=== PATIENT | male | born 1995 | race Caucasian/White ===

== ENCOUNTER 2021-01-31 12:36 | Emergency (ER) | payer MEDICAID, SELFPAY ==
[2021-01-31 12:42] VITALS: BP 139/101; PULSE 133; RESP 20; TEMP 36.7; O2SAT 98; BMI 32.1
--- NOTE | 2021-01-31 13:13 | EKG12_ITS ---
Test Reason : MENTAL STATUS CHANGE Blood Pressure : / mmHG Vent. Rate : 111 BPM Atrial Rate : 111 BPM P-R Int : 130 ms QRS Dur : 080 ms QT Int : 310 ms P-R-T Axes : 050 037 008 degrees QTc Int : 421 ms Sinus tachycardia Otherwise normal ECG Confirmed by SOLANGE MCCANN, LISSETTE ([id number]), tape editor SHAMAR COLLINS ([id number]) on 02/01/2021 9:22:30 AM Referred By: MARILU Confirmed By:LISSETTE NARVAEZ MD
--- NOTE | 2021-01-31 13:17 | NURSING ---
NO OLD EKGS
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
[2021-01-31 13:40] LABS: Absolute Lymphocyte Count 2.31 X10^3/uL (0.83-4.51); Absolute Neutrophil Count 5.2 X10^3/uL (2.0-7.7); Basophil# 0.03 X10^3/uL; Basophil% 0.4 % (0-1); Eosinophil# 0.05 X10^3/uL; Eosinophils% 0.6 % (0-5); Hematocrit 43.5 % (40-54); Hemoglobin 15.8 g/dL (13.0-16.5); Lymphocyte # 2.31 X10^3/ul (0.83-4.51); Lymphocyte % 28.4 % (19-41); Mean Corp Hgb Conc 36.3 g/dL (32-36); Mean Corpuscular Hgb 32.5 pg (27.0-32.0); Mean Corpuscular Volume 89.5 fL (80-94); Mean Platelet Vol. 9.9 fl (6.2-12.0); Monocyte# 0.54 X10^3/uL; Monocyte% 6.7 % (0-10); NRBC Flagged by Analyzer 0 % (0-5); Neutrophil # 5.16 X10^3/uL (2.7-7.7); Neutrophil % 63.5 % (47-70); POSITIVE COUNT YES; Platelet Count 269 K/mm3 (150-450); RBC Distribution Width CV 12.5 % (11.6-14.6); RBC Distribution Width SD 39.9 fl (35.1-43.9); Red Blood Count 4.86 M/mm3 (4.6-6.2); White Blood Count 8.1 K/mm3 (4.4-11.0)
[2021-01-31 13:44] LABS: Differential Indicated SCAN CRITERIA MET
[2021-01-31 14:05] LABS: Alcohol, Blood (Medical)-Serum < 3.0 mg/dL
[2021-01-31 14:06] LABS: Platelet Estimate ADEQUATE (ADEQ); Red Cell Morphology NORM C+C NORMAL (NORM C&C)
[2021-01-31 14:12] LABS: Anion Gap 6 (5-15); BUN 8 mg/dL (7-18); BUN/Creat Ratio 7.1 RATIO (10-20); CPK Total, Creatine Kinase 121 U/L (39-308); Calcium,Total 9.4 mg/dL (8.5-10.1); Chloride 107 mmol/L (98-107); Creatinine, Serum 1.13 mg/dL (0.70-1.30); EST Glomerular Filtration Rate 83 mL/min (>60); Est Glom Filt Rate - Afr Amer 100 mL/min (>60); Estimated Creatinine Clearance 98.19 ml/min; Glucose 126 mg/dL (74-106); Potassium 3.7 mmol/L (3.5-5.1); Sodium Level 139 mmol/L (136-145)
[2021-01-31 14:19] LABS: Amphetamine Urine VISTA POSITIVE (<1000 ng/mL); Barbiturate Urine VISTA NEGATIVE (< 200 ng/mL); Benzodiazepine Urine VISTA NEGATIVE (< 200 ng/mL); Cocaine Urine VISTA NEGATIVE (< 300 ng/mL); Ecstacy Urine VISTA NEGATIVE (< 500 ng/mL); Methadone Urine VISTA NEGATIVE (< 300 ng/mL); PCP Urine VISTA NEGATIVE (< 25 ng/mL); THC Urine VISTA POSITIVE (< 50 ng/mL); Vista UDS pH Range 5
[2021-01-31 15:05] VITALS: RESP 17
[2021-01-31 16:00] VITALS: RESP 16
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
--- NOTE | 2021-01-31 17:00 | CM.ED ---
SOCIAL WORK Mother not in agreement with plan for home with resources. Attempted to educate mother on meth use and after effects of meth. Mother states, No one will help me. Mother given information and resources. Patient walking out of department and mother requested information be faxed to [facility] in [place]. Patient gave permission for information to be faxed. Simran Hubbard, CEMENT PATCHER, SUPERVISOR [employer]ENZENE REFINING
[2021-01-31 17:03] VITALS: PULSE 112; RESP 17; O2SAT 97
== END 2021-01-31 17:04 | disposition home or self-care (01) ==
PROVIDERS: Emergency Provider Emergency Medicine
DX: F22 Delusional disorders (principal); F17.210 Nicotine dependence, cigarettes, uncomplicated
CPT/HCPCS: 36415; 80048; 80307; 82077; 82550; 85025; 87426; 93005; 99282

== ENCOUNTER 2024-01-17 14:54 | Emergency (ER) | payer MEDICAID, SELFPAY ==
[2024-01-17 14:54] VITALS: BP 147/95; PULSE 102; RESP 18; TEMP 36.8; O2SAT 96; BMI 32.2
--- NOTE | 2024-01-17 15:59 | EKG12_ITS ---
Test Reason : PLACEMENT Blood Pressure : / mmHG Vent. Rate : 070 BPM Atrial Rate : 070 BPM P-R Int : 152 ms QRS Dur : 082 ms QT Int : 382 ms P-R-T Axes : 054 053 017 degrees QTc Int : 412 ms Normal sinus rhythm Normal ECG Confirmed by SOLANGE MCCANN, LISSETTE ([id number]), fashion editor VILMA MARI ([id number]) on 01/18/2024 2:06:49 PM Referred By: Rosendo Villarreal Confirmed By:LISSETTE NARVAEZ MD
--- NOTE | 2024-01-17 16:00 | EX.ED.VIS.PS ---
HPI HPI - Psych History of Present Illness Chief Complaint: Mental Health Narrative Narrative: 28-year-old male presents with increasing depression and reported suicidal ideation. He relates history that he just got out of the hospital at [facility] from the psychiatric [facility]ron 3 days ago. He is currently homeless because he states his mother kicked him out of the house. He was trying to get further care and an aftercare facility for his depression. He states that he has history of bipolar disorder and is supposed to be on Risperdal, but has not picked it up from the pharmacy because once again he states he is homeless. He does have reported previous suicidal gesture where he took a telephone cord and put it up to his neck, but he states I was not going to do it. PFSH PFSH Allergy/AdvReac Type Severity Reaction Status Date / Time triamcinolone (From Azmacort) Allergy Shortness Verified 01/31/21 12:53 of breath Social History Smoking Status: Current every day smoker tobacco type: cigarettes ROS ROS ED ROS Narrative Constitutional: No fever, no chills. HEENT: No sore throat. No neck pain. No loss of vision. No rhinorrhea. Cardiovascular: No chest pain. No palpitations. No pedal edema. Respiratory: No cough, no shortness of breath. Abdominal: No abdominal pain. No nausea. No vomiting. Genitourinary: No dysuria. No hematuria. Musculoskeletal: No myalgias. No arthralgias. Neurologic: No headaches. No dizziness. No lightheadedness. Skin: No rash. No change in color. Psychiatric: Positive depression. No anxiety. Occasional suicidal thoughts. EXAM Physical Exam Narrative Exam Narrative: Afebrile. Vital signs noted. Regular rate and rhythm with intermittent tachycardia. Lungs clear to auscultation bilaterally. Abdomen soft nontender with normal active bowel sounds. Positive depressed affect. Feelings of helplessness and hopelessness because he is homeless. Denies suicidal ideation currently, or states I guess. Const Vital Signs: 01/17/24 14:54 01/17/24 21:18 Temperature 98.3 F Temperature Source Oral Pulse Rate 102 H Respiratory Rate 18 Blood Pressure 147/95 H 130/76 H Blood Pressure Mean 112 94 Pulse Ox 96 Oxygen Delivery Method Room Air MDM MDM MDM Narrative Medical decision making narrative: Concern is for depression with suicidal ideation. He states he wants to talk to a addiction social worker as well mainly because he is homeless. Medical screening labs will be obtained and reviewed. EKG was obtained and interpreted by myself independently as normal sinus rhythm at 70 bpm without ectopy or acute ST changes. No STEMI. Have reviewed his medical screening laboratory work and he has normal white count of 10.2 with hemoglobin 16.1, hematocrit 45.3, platelet count 277. Potassium slightly low at 3.4 which I think is nonspecific, BUN normal at 17 and creatinine 1.13. Glucose appropriately elevated at 125 with a normal anion gap of 7. Ethanol level is negative at 4.0. Urine for drugs of abuse is positive for amphetamines, cocaine, and cannabinoids. He did admit that he started using drugs again. I do feel that he is medically cleared for evaluation. After evaluation by social work, it was felt that he probably will require placement as social work spoke with his mother. Patient was becoming more psychotic even before he started abusing drugs. They relate history that he was admitted for 3 days in [place], then released to the streets. He was picked up as he was walking someone's dog on the streets, and was pink slipped for 2 weeks. He was supposed to be placed in a long-term facility, but that fell through so they released him back to the streets. It was reported by social work that his mother picked him up at 3 AM this morning because he was in a hotel room abusing drugs. He had intermittently been seen at the counseling center and they were trying to get him off Risperdal onto another medication. As the patient has not picked up any of his medications and is psychotic more so than suicidal, I do feel that he requires placement in a psychiatric facility. I do not feel that he currently requires a sitter because he admitted that although he had grabbed a telephone cord and put it up to his neck that he was not going to commit suicide and he currently is not suicidal. Patient is awaiting placement. He is in stable condition. Patient has been accepted at [facility]. At this point in time, he will be signed out to the overnight physician, Dr. Talon Barba, to continue observation as he awaits transfer. Patient is in stable condition. History & Record Review Discussion w/independent historian: Patient Lab Data Attestation: I reviewed the patient's lab results. Labs: Laboratory Results - last 24 hr 01/17/24 01/17/24 17:00 17:45 WBC 10.2 RBC 5.08 Hgb 16.1 Hct 45.3 MCV 89.2 MCH 31.7 MCHC 35.5 RDW Std Deviation 40.7 RDW Coeff of Paty 12.5 Plt Count 277 MPV 8.6 Immature Gran % (Auto) 0.200 Neut % (Auto) 65.2 Lymph % (Auto) 23.3 [place] % (Auto) 7.9 Eos % (Auto) 2.8 Baso % (Auto) 0.6 Absolute Neuts (auto) 6.6 Absolute Lymphs (auto) 2.37 Nucleated RBC % 0 Sodium 138 Potassium 3.4 L Chloride 105 Carbon Dioxide 26.0 Anion Gap 7 BUN 17 Creatinine 1.13 Estim Creat Clear Calc 110.85 Est GFR (MDRD) Af Amer 98 Est GFR (MDRD) Non-Af 81 BUN/Creatinine Ratio 15.0 Glucose 125 H Calcium 9.9 Total Bilirubin 1.80 H AST 79 H ALT 166 H Alkaline Phosphatase 78 Total Protein 8.5 H Albumin 4.3 Globulin 4.2 Albumin/Globulin Ratio 1.0 Urine Opiates Screen NEGATIVE Urine Methadone Screen NEGATIVE Ur Barbiturates Screen NEGATIVE Ur Phencyclidine Scrn NEGATIVE Ur Amphetamines Screen POSITIVE H MDMA (Ecstasy) Screen NEGATIVE U Benzodiazepines Scrn NEGATIVE Urine Cocaine Screen POSITIVE H U Cannabinoids Screen POSITIVE H Ur Drug Screen Comment Ethyl Alcohol 4.0 Discharge Plan Triage Chief Complaint: Mental Health ED Provider: Rosendo Villarreal Dx/Rx/DC Orders Clinical Impression: Psychosis, Bipolar disorder, Suicidal thoughts Primary Care Provider: Care Physician,No Primary Referrals: Care Physician,No Primary [Primary Care Provider] - Print Language: Bhutanese Disposition Disposition: Psychiatric Hospital or Unit Discharge Location: [facility]
[2024-01-17 17:11] LABS: Absolute Lymphocyte Count 2.37 X10^3/uL (0.83-4.51); Absolute Neutrophil Count 6.6 X10^3/uL (2.0-7.7); Basophil# 0.06 X10^3/uL; Basophil% 0.6 % (0-1); Eosinophil# 0.28 X10^3/uL; Eosinophils% 2.8 % (0-5); Hematocrit 45.3 % (40-54); Hemoglobin 16.1 g/dL (13.0-16.5); Lymphocyte # 2.37 X10^3/ul (0.83-4.51); Lymphocyte % 23.3 % (19-41); Mean Corp Hgb Conc 35.5 g/dL (32-36); Mean Corpuscular Hgb 31.7 pg (27.0-32.0); Mean Corpuscular Volume 89.2 fL (80-94); Mean Platelet Vol. 8.6 fl (6.2-12.0); Monocyte% 7.9 % (0-10); NRBC Flagged by Analyzer 0 % (0-5); Neutrophil # 6.64 X10^3/uL (2.7-7.7); Neutrophil % 65.2 % (47-70); Platelet Count 277 K/mm3 (150-450); RBC Distribution Width CV 12.5 % (11.6-14.6); RBC Distribution Width SD 40.7 fl (35.1-43.9); Red Blood Count 5.08 M/mm3 (4.6-6.2); White Blood Count 10.2 K/mm3 (4.4-11.0)
[2024-01-17 17:33] LABS: AST(SGOT) 79 U/L (15-37); Alanine Aminotransfer ALT/SGPT 166 U/L (16-61); Albumin, Serum 4.3 g/dL (3.2-5.0); Alkaline Phosphatase 78 U/L (45-117); Anion Gap 7 (5-15); BUN 17 mg/dL (7-18); Calcium,Total 9.9 mg/dL (8.5-10.1); Chloride 105 mmol/L (98-107); Creatinine, Serum 1.13 mg/dL (0.70-1.30); EST Glomerular Filtration Rate 81 mL/min (>60); Est Glom Filt Rate - Afr Amer 98 mL/min (>60); Estimated Creatinine Clearance 110.85 ml/min; Globulin 4.2 g/dL (2.2-4.2); Glucose 125 mg/dL (74-106); Potassium 3.4 mmol/L (3.5-5.1); Protein, Total 8.5 g/dL (6.4-8.2); Sodium Level 138 mmol/L (136-145)
[2024-01-17 18:28] LABS: Amphetamine Urine VISTA POSITIVE (<1000 ng/mL); Barbiturate Urine VISTA NEGATIVE (< 200 ng/mL); Benzodiazepine Urine VISTA NEGATIVE (< 200 ng/mL); Cocaine Urine VISTA POSITIVE (< 300 ng/mL); Ecstacy Urine VISTA NEGATIVE (< 500 ng/mL); Methadone Urine VISTA NEGATIVE (< 300 ng/mL); PCP Urine VISTA NEGATIVE (< 25 ng/mL); THC Urine VISTA POSITIVE (< 50 ng/mL); Vista UDS pH Range 5
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
--- NOTE | 2024-01-17 19:34 | CM.ED ---
Social Work Referrals sent to [facility], [facility], and [facility] who all reported to have open beds to consider referral. Asked hospitals to call Crisis with answer on acceptance. Called Crisis at [facility] and spoke with Tello albarran crisis electrician's assistant. Handoff given of referrals pending, and that hospitals are to call crisis with updates. Faxed referral packet to crisis in case there is a need for additional referrals to be made. Plan: Pending referrals for inpatient mental health. -EMPERATRIZ Meyer
[2024-01-17] MEDS: Potassium Chloride Oral Tablet 20 MEQ 40 MEQ PO (20:15)
[2024-01-17 21:18] VITALS: BP 130/76
[2024-01-17 22:29] VITALS: BP 130/76; PULSE 78; RESP 16; TEMP 36.6; O2SAT 99
--- NOTE | 2024-01-17 23:45 | ED.RN ---
This RN gave RN to RN report to Leydi at [facility].
== END 2024-01-18 00:22 ==
PROVIDERS: Emergency Provider Emergency Medicine; Referring Provider Emergency Medicine; Visit Provider Emergency Medicine
DX: F29 Unspecified psychosis not due to a substance or known physiological condition (principal); F14.10 Cocaine abuse, uncomplicated; F31.9 Bipolar disorder, unspecified; R45.851 Suicidal ideations; Z59.00 Homelessness unspecified; F17.210 Nicotine dependence, cigarettes, uncomplicated
CPT/HCPCS: 80053; 80307; 82077; 85025; 87631; 93005; 99285